=== PATIENT | male | born 1990 | race Caucasian/White ===

== ENCOUNTER 2018-10-29 14:36 | Emergency (ER) | payer MEDICAID ==
[2018-10-29] MEDS ORDERED: Ibuprofen 600 MG Tab PO ONE (16:12)
--- NOTE | 2018-10-29 16:17 | EDM.PDOC ---
ED HPI GENERAL MEDICAL PROBLEM - General Chief Complaint: ENT Problem Stated Complaint: THROWING UP/COUGH Time Seen by Provider: 10/29/18 16:05 Source of Information: Reports: Patient, Old Records, RN History Limitations: Reports: No Limitations - History of Present Illness INITIAL COMMENTS - FREE TEXT/NARRATIVE: 28 yo male here with cough, congestion, fever, and body aches for 2-3 days. Has not been to the clinic. Is not SOB. Is missing work. Did have an influenza vaccine. Onset: Gradual Onset Date: 10/26/18 Duration: Day(s): (3), Constant Location: Reports: Head, Face, Neck, Chest Quality: Reports: Other (mild sore throat) Severity: Moderate Improves with: Reports: Medication, Rest Worsens with: Reports: Other (exertion) Context: Reports: Sick Contact (?) Associated Symptoms: Reports: Cough, Fever/Chills Treatments CAR WHACKER: Reports: Other (see below) (none) Throat Pain Score (Numeric/FACES): 4 - Related Data Allergies Allergy/AdvReac Type Severity Reaction Status Date / Time No Known Allergies Allergy Verified 10/29/18 15:01 Home Meds: Home Meds NK [No Known Home Meds] 10/29/18 [History] Past Medical History Psychiatric History: Reports: Anxiety, Depression, Panic Attack, PTSD - Past Surgical History Head Surgeries/Procedures: Reports: None Dermatological Surgical History: Reports: None Social & Family History - Tobacco Use Smoking Status *Q: Current Every Day Smoker Years of Tobacco use: 20 Packs/Tins Daily: 5 Used Tobacco, but Quit: No Second Hand Smoke Exposure: No - Caffeine Use Caffeine Use: Reports: Coffee - Recreational Drug Use Recreational Drug Use: No ED ROS ENT - Review of Systems Review Of Systems: See Below Constitutional: Reports: Fever, Chills, Malaise HEENT: Reports: Throat Pain (mild). Denies: Rhinitis Respiratory: Reports: Cough. Denies: Shortness of Breath, Wheezing, Pleuritic Chest Pain, Sputum, Hemoptysis Cardiovascular: Reports: No Symptoms Endocrine: Reports: No Symptoms GI/Abdominal: Reports: No Symptoms : Reports: No Symptoms Musculoskeletal: Reports: No Symptoms Skin: Reports: No Symptoms Neurological: Reports: No Symptoms Psychiatric: Reports: No Symptoms ED EXAM, ENT - Physical Exam Exam: See Below Exam Limited By: No Limitations General Appearance: Alert, WD/WN, No Apparent Distress, Obese Eye Exam: Bilateral Eye: Normal Inspection Ears: Normal External Exam, Normal Canal, Hearing Grossly Normal, Normal TMs Nose: Normal Inspection, No Blood Mouth/Throat: Normal Inspection, Normal Lips, Normal Oropharynx Head: Atraumatic, Normocephalic Neck: Normal Inspection, Non-Tender Respiratory/Chest: No Respiratory Distress, Lungs Clear, Normal Breath Sounds, No Accessory Muscle Use Cardiovascular: Regular Rate, Rhythm, No Edema GI/Abdominal: Normal Bowel Sounds, Soft, Non-Tender, No Distention Back: Normal Inspection. No: CVA Tenderness (R), CVA Tenderness (L) Extremities: Normal Inspection, Normal Range of Motion, Non-Tender, No Pedal Edema Neurological: Alert, Oriented, CN II-XII Intact, Normal Cognition, No Motor/ Sensory Deficits Psychiatric: Normal Affect, Normal Mood Skin: Warm, Dry, Intact, Normal Color, No Rash Course - Vital Signs Last Recorded V/S: Last Vital Signs Temp 37.1 C 10/29/18 15:09 Pulse 96 10/29/18 15:09 Resp 15 10/29/18 15:09 BP 163/87 H 10/29/18 15:09 Pulse Ox 96 10/29/18 15:09 - Orders/Labs/Meds Labs: Laboratory Tests 10/29/18 Range/Units 16:43 WBC 6.4 (4.5-11.0) K/uL RBC 4.70 (4.30-5.90) M/uL Hgb 15.6 H (12.0-15.0) g/dL Hct 44.8 (40.0-54.0) % MCV 95 (80-98) fL MCH 33 H (27-31) pg MCHC 35 (32-36) % Plt Count 268 (150-400) K/uL Meds: Medications Discontinued Medications Generic Name Dose Route Start Last Admin Trade Name Freq PRN Reason Stop Dose Admin Ibuprofen 600 mg 10/29/18 16:12 10/29/18 16:16 Motrin PO 10/29/18 16:13 600 mg ONETIME ONE Administration Departure - Departure Time of Disposition: 16:51 Disposition: Home, Self-Care 01 Condition: Fair Clinical Impression: Influenza-like illness - Discharge Information *PRESCRIPTION DRUG MONITORING PROGRAM REVIEWED*: No *COPY OF PRESCRIPTION DRUG MONITORING REPORT IN PATIENT NATASHA: No Instructions: Influenza, Adult, [id number] Referrals: PCP,None [Primary Care Provider] - Forms: ED Department Discharge Additional Instructions: Take Robitussin AC as directed. Take acetaminophen and/or ibuprofen as needed for pain/fever control. Isolation and frequent hand washing to limit spread. Drink ample fluids and rest. Recheck if worse.
== END 2018-10-29 17:00 | disposition home or self-care (01) ==
LOC: JP.ED 14:36
DX: R09.89 Other specified symptoms and signs involving the circulatory and respiratory systems (principal); F17.210 Nicotine dependence, cigarettes, uncomplicated
CPT/HCPCS: 36415; 85027; 87804; 99284; A9270; 99282

== ENCOUNTER 2018-11-19 12:16 | Emergency (ER) | payer MEDICAID ==
--- NOTE | 2018-11-19 13:11 | EDM.PDOC ---
ED HPI GENERAL MEDICAL PROBLEM - General Chief Complaint: Lower Extremity Injury/Pain Stated Complaint: VEINS PAIN IN LEFT LEG Time Seen by Provider: 11/19/18 13:00 Source of Information: Reports: Patient, Old Records, RN History Limitations: Reports: No Limitations - History of Present Illness INITIAL COMMENTS - FREE TEXT/NARRATIVE: 28 yo male with chronic varicose veins comes to the ER today due to the veins hurting more than normal. Is taking ibuprofen for the pain. Onset: Gradual Duration: Chronic Location: Reports: Lower Extremity, Right Quality: Reports: Ache Severity: Mild Improves with: Reports: Medication Worsens with: Reports: None Context: Reports: Other (see HPI) Associated Symptoms: Reports: No Other Symptoms Treatments PEDIATRIC LPN: Reports: NSAIDS Left Leg Pain Score (Numeric/FACES): 7 - Related Data Allergies Allergy/AdvReac Type Severity Reaction Status Date / Time No Known Allergies Allergy Verified 11/19/18 13:04 Home Meds: Home Meds NK [No Known Home Meds] 10/29/18 [History] Past Medical History Psychiatric History: Reports: Anxiety, Depression, Panic Attack, PTSD - Past Surgical History Head Surgeries/Procedures: Reports: None Dermatological Surgical History: Reports: None Social & Family History - Tobacco Use Smoking Status *Q: Light Tobacco Smoker Years of Tobacco use: 20 Packs/Tins Daily: 0.5 - Caffeine Use Caffeine Use: Reports: Coffee - Recreational Drug Use Recreational Drug Use: No Review of Systems - Review of Systems Review Of Systems: See Below Constitutional: Reports: No Symptoms Eyes: Reports: No Symptoms Ears: Reports: No Symptoms Nose: Reports: No Symptoms Mouth/Throat: Reports: No Symptoms Respiratory: Reports: No Symptoms Cardiovascular: Reports: No Symptoms, Other (chronic leg varicose veins) GI/Abdominal: Reports: No Symptoms Genitourinary: Reports: No Symptoms Musculoskeletal: Reports: No Symptoms Skin: Reports: No Symptoms Neurological: Reports: No Symptoms ED EXAM, GENERAL - Physical Exam Exam: See Below Exam Limited By: No Limitations General Appearance: Alert, WD/WN, No Apparent Distress Eye Exam: Bilateral Eye: Normal Inspection Ears: Hearing Grossly Normal Ear Exam: Bilateral Ear: Auricle Normal, Canal Normal Nose: Normal Inspection, No Blood Throat/Mouth: Normal Voice, No Airway Compromise Head: Atraumatic, Normocephalic Neck: Normal Inspection Respiratory/Chest: No Respiratory Distress Extremities: Other (Large, unclotted varicosities of both legs, R >L) Neurological: Alert, Oriented, CN II-XII Intact, Normal Cognition Psychiatric: Normal Affect, Normal Mood Skin Exam: Warm, Dry, Intact, Normal Color, No Rash. No: Ecchymosis, Erythema Course - Vital Signs Last Recorded V/S: Last Vital Signs Temp 35.4 C 11/19/18 13:03 Pulse 72 11/19/18 13:03 Resp 16 11/19/18 13:03 BP 165/88 H 11/19/18 13:03 Pulse Ox 100 11/19/18 13:03 Departure - Departure Time of Disposition: 13:12 Disposition: Home, Self-Care 01 Condition: Good Clinical Impression: Varicose veins of both lower extremities Qualifiers: Varicose vein complication: pain Qualified Code(s): I83.813 - Varicose veins of bilateral lower extremities with pain - Discharge Information *PRESCRIPTION DRUG MONITORING PROGRAM REVIEWED*: No *COPY OF PRESCRIPTION DRUG MONITORING REPORT IN PATIENT NATASHA: No Instructions: Varicose Veins Referrals: Fred Willis MD [Primary Care Provider] - Additional Instructions: Add acetaminophen for pain relief as needed to your current ibuprofen. F/U with surgery for treatment, someone will contact you likely tomorrow to schedule.
== END 2018-11-19 13:21 | disposition home or self-care (01) ==
LOC: JP.ED 12:16
DX: I83.813 Varicose veins of bilateral lower extremities with pain (principal); F17.210 Nicotine dependence, cigarettes, uncomplicated
CPT/HCPCS: 99283

== ENCOUNTER 2018-12-03 14:48 | Emergency (ER) | payer MEDICAID ==
[2018-12-03] MEDS ORDERED: Ketorolac 30 MG/ML SDV IVPUSH ONE (15:34)
[2018-12-03] MEDS ORDERED: methylPREDNISolone Sodium Succinate 125 MG/2 ML SDV IVPUSH ONE (16:41)
--- NOTE | 2018-12-03 16:44 | EDM.PDOC ---
ED HPI GENERAL MEDICAL PROBLEM - General Chief Complaint: Skin Complaint Stated Complaint: INFECTION Time Seen by Provider: 12/03/18 15:25 Source of Information: Reports: Patient History Limitations: Reports: No Limitations - History of Present Illness INITIAL COMMENTS - FREE TEXT/NARRATIVE: 28-year-old male with known varicosities of the left leg has had red inflamed areas of the leg for the past 3 weeks. He was seen in the clinic 2 days ago and started on an antibiotic but it's worsening. An ultrasound done confirmed significant superficial varicosities. No DVT, he's had no fevers or chills. The pain is worsening, he's having difficulty standing and working. Onset: Gradual Duration: Week(s): (Started 3 weeks ago with a small red area and has worsened steadily) Location: Reports: Lower Extremity, Left Worsens with: Reports: Other (Standing), Movement Associated Symptoms: Reports: No Other Symptoms. Denies: Chest Pain, Cough, Fever/Chills, Shortness of Breath Treatments CASING IN LINE SETTER: Reports: Other (see below) (Has had antibiotics for the last 3 days, also taking ibuprofen) Left Leg Pain Score (Numeric/FACES): 10 - Related Data Allergies Allergy/AdvReac Type Severity Reaction Status Date / Time No Known Allergies Allergy Verified 12/03/18 15:09 Home Meds: Home Meds Diclofenac Sodium 1 dose TOP DAILY 12/03/18 [History] QUEtiapine Fumarate [Quetiapine Fumarate] 100 mg PO DAILY 12/03/18 [History] Sulfamethoxazole/Trimethoprim [Bactrim Ds Tablet] 1 each PO BID 12/03/18 [ History] busPIRone HCl [Buspirone HCl] 15 mg PO BID 12/03/18 [History] cloNIDine [Catapres] 0.1 mg PO DAILY 12/03/18 [History] lamoTRIgine [Lamotrigine] 25 mg PO DAILY 12/03/18 [History] Past Medical History Cardiovascular History: Reports: Other (See Below) Other Cardiovascular History: varicose veins. tachycardia Neurological History: Reports: Migraines Psychiatric History: Reports: Anxiety, Depression, Panic Attack, PTSD - Past Surgical History Head Surgeries/Procedures: Reports: None Dermatological Surgical History: Reports: None Social & Family History - Tobacco Use Smoking Status *Q: Current Every Day Smoker Years of Tobacco use: 20 Packs/Tins Daily: 0.5 - Caffeine Use Caffeine Use: Reports: Coffee, Soda - Recreational Drug Use Recreational Drug Type: Reports: Methamphetamine ED ROS GENERAL - Review of Systems Review Of Systems: See Below Constitutional: Denies: Fever, Chills HEENT: Reports: No Symptoms Respiratory: Denies: Shortness of Breath, Cough Cardiovascular: Denies: Chest Pain GI/Abdominal: Denies: Diarrhea, Nausea, Vomiting : Reports: No Symptoms Skin: Reports: Erythema Neurological: Denies: Headache ED EXAM, SKIN/RASH Exam: See Below Exam Limited By: No Limitations General Appearance: Alert, No Apparent Distress (Patient is very uncomfortable but not distressed) Respiratory/Chest: No Respiratory Distress, Lungs Clear Cardiovascular: Regular Rate, Rhythm Extremities: Other (Exam is otherwise limited to the lower extremities. Patient has extensive very painful and warm erythema on the medial aspect of the left thigh, also areas of erythema on the medial aspect of the lower leg. It is firm to palpation, very tender.) Course - Vital Signs Last Recorded V/S: Last Vital Signs Temp 97.3 F 12/03/18 15:07 Pulse 96 12/03/18 15:07 Resp 16 12/03/18 15:07 BP 145/85 H 12/03/18 15:07 Pulse Ox 97 12/03/18 15:07 - Orders/Labs/Meds Labs: Laboratory Tests 12/03/18 12/03/18 Range/Units 15:47 15:47 WBC 9.2 (4.5-11.0) K/uL RBC 4.78 (4.30-5.90) M/uL Hgb 16.1 H (12.0-15.0) g/dL Hct 46.2 (40.0-54.0) % MCV 97 (80-98) fL MCH 34 H (27-31) pg MCHC 35 (32-36) % Plt Count 305 (150-400) K/uL Neut % (Auto) 50 (36-66) % Lymph % (Auto) 31 (24-44) % [place] % (Auto) 12 H (2-6) % Eos % (Auto) 6 H (2-4) % Baso % (Auto) 1 (0-1) % Sodium 138 L (140-148) mmol/L Potassium 3.7 (3.6-5.2) mmol/L Chloride 104 (100-108) mmol/L Carbon Dioxide 23 (21-32) mmol/L Anion Gap 14.7 H (5.0-14.0) mmol/L BUN 16 (7-18) mg/dL Creatinine 1.2 (0.8-1.3) mg/dL Est Cr Clr Drug Dosing 108.56 mL/min Estimated GFR (MDRD) > 60 (>60) Glucose 103 (74-106) mg/dL Calcium 9.0 (8.5-10.1) mg/dL C-Reactive Protein 3.29 H (0.0-0.3) mg/dL Meds: Medications Discontinued Medications Generic Name Dose Route Start Last Admin Trade Name Freq PRN Reason Stop Dose Admin Ketorolac Tromethamine 30 mg 12/03/18 15:34 12/03/18 15:45 Toradol IVPUSH 12/03/18 15:35 30 mg ONETIME ONE Administration Methylprednisolone Sodium Succinate 125 mg 12/03/18 16:41 12/03/18 16:50 Solu-Medrol IVPUSH 12/03/18 16:42 125 mg ONETIME ONE Administration - Re-Assessments/Exams Free Text/Narrative Re-Assessment/Exam: 12/04/18 08:42 An IV was started and the patient was given 30 mg of IV Toradol. CBC BMP and CRP were obtained, CRP is elevated but white count is normal. Discussed his condition with surgery, this likely is extensive superficial thrombophlebitis, actual bacterial infection is unlikely. Patient was given 125 mg of IV Solu- Medrol, will continue on a Medrol Dosepak over the next several days and continue the antibiotic. Recheck with Dr. Hernandez on Tuesday. Departure - Departure Time of Disposition: 16:53 Disposition: Home, Self-Care 01 Condition: Fair Clinical Impression: Superficial thrombophlebitis of left leg - Discharge Information Instructions: Phlebitis, [id number] Referrals: Fred Willis MD [Primary Care Provider] - Forms: ED Department Discharge Care Plan Goals: Use ketorolac one pill every 6 hours until rechecked by Dr. Hernandez on Tuesday. Call the clinic tomorrow morning for an appointment time. Take Medrol Dosepak as prescribed, and continue the antibiotic.
== END 2018-12-03 16:53 | disposition home or self-care (01) ==
LOC: JP.ED 14:48
DX: I80.02 Phlebitis and thrombophlebitis of superficial vessels of left lower extremity (principal); F17.210 Nicotine dependence, cigarettes, uncomplicated; Z79.899 Other long term (current) drug therapy
CPT/HCPCS: 36415; 80048; 85025; 86140; 96374; 96375; 99283; J1885; J2930

== ENCOUNTER 2019-09-24 15:54 | Emergency (ER) | payer MEDICAID ==
[2019-09-24] MEDS ORDERED: Ketorolac 60 MG/2 ML SDV IM ONE (16:52)
--- NOTE | 2019-09-24 17:00 | EDM.PDOC ---
ED HPI GENERAL MEDICAL PROBLEM - General Chief Complaint: Upper Extremity Injury/Pain Stated Complaint: DISLOCATED LEFT SHOLDER Time Seen by Provider: 09/24/19 16:55 Source of Information: Reports: Patient, Family, RN Notes Reviewed History Limitations: Reports: No Limitations - History of Present Illness INITIAL COMMENTS - FREE TEXT/NARRATIVE: 29-year-old gentleman presents the emergency department with a complaint of left shoulder pain, he believes he may have dislocated it he slipped on the snow earlier today and felt a pop and now he has difficulty moving his left shoulder full range of motion of all digits cannot raise his arm past 10 degrees abduction left shoulder Pain Score (Numeric/FACES): 9 - Related Data Allergies Allergy/AdvReac Type Severity Reaction Status Date / Time No Known Allergies Allergy Verified 09/24/19 16:10 Home Meds: Home Meds lamoTRIgine [Lamotrigine] 100 mg PO DAILY 12/03/18 [History] Escitalopram [Lexapro] 20 mg PO DAILY 09/24/19 [History] Gabapentin [Neurontin] 100 mg PO TID 09/24/19 [History] OXcarbazepine [Trileptal] 300 mg PO DAILY 09/24/19 [History] Propranolol [Inderal] 40 mg PO BID 09/24/19 [History] Zolpidem Tartrate [Ambien] 5 mg PO BEDTIME 09/24/19 [History] Past Medical History Cardiovascular History: Reports: Other (See Below) Other Cardiovascular History: varicose veins. tachycardia Musculoskeletal History: Reports: Other (See Below) Other Musculoskeletal History: multiple dislocations of right shoulder Neurological History: Reports: Migraines Psychiatric History: Reports: Anxiety, Depression, Panic Attack, PTSD Endocrine/Metabolic History: Reports: Obesity/BMI 30+ - Past Surgical History Head Surgeries/Procedures: Reports: None Social & Family History - Tobacco Use Smoking Status *Q: Current Every Day Smoker Years of Tobacco use: 12 Packs/Tins Daily: 0.5 - Caffeine Use Caffeine Use: Reports: Coffee, Energy Drinks - Recreational Drug Use Recreational Drug Use: No Review of Systems - Review of Systems Review Of Systems: See Below Musculoskeletal: Reports: Shoulder Pain ED EXAM, GENERAL - Physical Exam Exam: See Below Free Text/Narrative:: Examination of the left shoulder I do not appreciate any obvious dislocation he is tender to any palpation over the AC joint he has problems raising his arm past 10 degrees abduction radial pulses +2 full range of motion of all digits no pain at the wrist or elbow Exam Limited By: No Limitations General Appearance: Alert, WD/WN, Mild Distress Respiratory/Chest: No Respiratory Distress ED TRAUMA EXTREMITY PROCEDURES - Joint Reduction Site: Shoulder (L) Sedation: Conscious Sedation Pre-Procedure NV Status: Normal Post-Procedure NV Status: Normal Technique: Traction/Counter Traction Number of Attempts: 1 Post-Reduction Imaging: Completely Reduced Joint Reduction Complications: No Joint Reduction Complication Description: Anesthesia down with [employer] [employer] please see his notes for details Course - Vital Signs Last Recorded V/S: Last Vital Signs Temp 97.3 F 09/24/19 16:17 Pulse 82 09/24/19 16:17 Resp 18 09/24/19 16:17 BP 152/98 H 09/24/19 16:17 Pulse Ox 97 09/24/19 16:17 - Orders/Labs/Meds Orders: Active Orders 24 hr Category Date Time Status Peripheral IV Care [RC] . DIRECTED Care 09/24/19 17:15 Active Sodium Chloride 0.9% [Normal Saline] 1,000 ml Med 09/24/19 17:15 Active IV ASDIRECTED Sodium Chloride 0.9% [Saline Flush] Med 09/24/19 17:15 Active 10 ml FLUSH ASDIRECTED PRN DME for Discharge [COMM] Urgent Oth 09/24/19 17:54 Ordered Peripheral IV Insertion Adult [OM.PC] Urgent Oth 09/24/19 17:15 Ordered Medication Orders Sodium Chloride (Normal Saline) 1,000 mls @ 125 mls/hr IV ASDIRECTED ARIA Last Admin: 09/24/19 17:27 Dose: 125 mls/hr Sodium Chloride (Saline Flush) 10 ml FLUSH ASDIRECTED PRN PRN Reason: Keep Vein Open Last Admin: 09/24/19 17:26 Dose: 10 ml Meds: Medications Generic Name Dose Route Start Last Admin Trade Name Freq PRN Reason Stop Dose Admin Sodium Chloride 1,000 mls @ 125 mls/hr 09/24/19 17:15 09/24/19 17:27 Normal Saline IV 125 mls/hr ASDIRECTED ARIA Administration Sodium Chloride 10 ml 09/24/19 17:15 09/24/19 17:26 Saline Flush FLUSH 10 ml ASDIRECTED PRN Administration Keep Vein Open Discontinued Medications Generic Name Dose Route Start Last Admin Trade Name James PRN Reason Stop Dose Admin Ketorolac Tromethamine 60 mg 09/24/19 16:52 09/24/19 16:58 Toradol IM 09/24/19 16:53 60 mg ONETIME ONE Administration Propofol Confirm 09/24/19 18:06 Diprivan 20 Ml Administered 09/24/19 18:07 Dose 200 mg .ROUTE .STK-MED ONE Departure - Departure Time of Disposition: 18:17 Disposition: Home, Self-Care 01 Condition: Fair Clinical Impression: Anterior dislocation of left shoulder Qualifiers: Encounter type: initial encounter Qualified Code(s): S43.015A - Anterior dislocation of left humerus, initial encounter - Discharge Information Instructions: Recurrent Shoulder Laxity and Instability Referrals: Fred Willis MD [Primary Care Provider] - Forms: ED Department Discharge Additional Instructions: Continue to remain in sling until reevaluated by orthopedics or primary care next 3 to 5 days, call or return to the emergency department worsening symptoms Sepsis Event Note - Evaluation Sepsis Screening Result: No Definite Risk - Focused Exam Vital Signs: Vital Signs Temp Pulse Resp BP Pulse Ox 09/24/19 16:17 97.3 F 82 18 152/98 H 97 09/24/19 16:07 97.3 F 82 18 152/98 H 97 Date Exam was Performed: 09/24/19 Time Exam was Performed: 18:16 - My Orders Last 24 Hours: My Active Orders 09/24/19 17:15 Peripheral IV Care [RC] . DIRECTED Sodium Chloride 0.9% [Normal Saline] 1,000 ml IV ASDIRECTED Sodium Chloride 0.9% [Saline Flush] 10 ml FLUSH ASDIRECTED PRN Peripheral IV Insertion Adult [OM.PC] Urgent 09/24/19 17:54 DME for Discharge [COMM] Urgent - Assessment/Plan Last 24 Hours: My Active Orders 09/24/19 17:15 Peripheral IV Care [RC] . DIRECTED Sodium Chloride 0.9% [Normal Saline] 1,000 ml IV ASDIRECTED Sodium Chloride 0.9% [Saline Flush] 10 ml FLUSH ASDIRECTED PRN Peripheral IV Insertion Adult [OM.PC] Urgent 09/24/19 17:54 DME for Discharge [COMM] Urgent Plan: Assessment Acuity = acute Site and laterality = left shoulder dislocation Etiology = secondary to fall Manifestations = none Location of injury = Home Lab values = x-rays show dislocation and post reduction Plan Placed in a sling prescription written for Percocet 5/325 1 tab p.o. 3 times daily PRN total #6 he has a follow-up appointment with his primary care tomorrow This note was dictated using [employer] voice recognition software please call with any questions on syntax or grammar.
[2019-09-24] MEDS ORDERED: Sodium Chloride 0.9% 10 ML Syringe FLUSH PRN (17:15)
[2019-09-24] MEDS ORDERED: Sodium Chloride 0.9% 1,000 ML IV SCH (17:15)
--- NOTE | 2019-09-24 17:33 | CRLCR ---
Indication: Pain Technique: AP view of the left shoulder Comparison: None Findings: The humeral head is displaced anterior and inferior to the level of the glenoid. No fracture is identified. Impression: Left should dislocation Dictated by Sylvia Espinosa MD @ Sep 24 2019 5:30PM Signed by Dr. Sylvia Espinosa @ Sep 24 2019 5:32PM
[2019-09-24] MEDS ORDERED: Propofol 200 MG/20 ML SDV ONE (18:06)
--- NOTE | 2019-09-24 18:08 | CRLCR ---
Indication: Postreduction. Technique: Three views of the left shoulder. Comparison: The current study is dated 175 is compared with a study from earlier today. Findings: The humeral head is now seated within the glenoid. No definite fracture or subluxation is identified. Impression: No acute fracture Dictated by Sylvia Espinosa MD @ Sep 24 2019 6:06PM Signed by Dr. Sylvia Espinosa @ Sep 24 2019 6:07PM
== END 2019-09-24 18:32 | disposition home or self-care (01) ==
LOC: JP.ED 15:54
DX: S43.015A Anterior dislocation of left humerus, initial encounter (principal); F17.210 Nicotine dependence, cigarettes, uncomplicated; Z79.899 Other long term (current) drug therapy; W01.0XXA Fall on same level from slipping, tripping and stumbling without subsequent striking against object, initial encounter
CPT/HCPCS: 23650; 73020; 96360; 96372; 99283; J1885; J2704; J7030

== ENCOUNTER 2021-12-19 18:33 | Emergency (ER) | payer MEDICAID | END 2021-12-19 19:55 | disposition left against medical advice (07) | LOC: JP.ED 18:33 | DX: M79.605 Pain in left leg (principal); E11.9 Type 2 diabetes mellitus without complications; E66.9 Obesity, unspecified; Z72.0 Tobacco use; Z79.899 Other long term (current) drug therapy; Z86.16 Personal history of COVID-19 | CPT/HCPCS: 99282; 99283 ==

== ENCOUNTER 2022-04-11 13:22 | Emergency (ER) | payer MEDICAID ==
[2022-04-11] MEDS ORDERED: Famotidine 20 MG/2 ML SDV IVPUSH ONE (13:41)
[2022-04-11] MEDS ORDERED: diphenhydrAMINE 50 MG/ML SDV IVPUSH ONE (13:41)
[2022-04-11] MEDS ORDERED: Sodium Chloride 0.9% 10 ML Syringe FLUSH PRN (13:41)
[2022-04-11] MEDS ORDERED: methylPREDNISolone Sodium Succinate 125 MG/2 ML SDV IVPUSH ONE (13:43)
[2022-04-11] MEDS ORDERED: Sodium Chloride 0.9% 1,000 ML IV SCH (13:45)
== END 2022-04-11 15:08 | disposition home or self-care (01) ==
LOC: JP.ED 13:22
DX: T78.40XA Allergy, unspecified, initial encounter (principal); E11.9 Type 2 diabetes mellitus without complications; E66.9 Obesity, unspecified; Z68.41 Body mass index [BMI] 40.0-44.9, adult
CPT/HCPCS: 96361; 96374; 96375; 99283; J1200; J2930; J3490; J7030; 99282

== ENCOUNTER 2022-07-30 14:25 | Emergency (ER) | payer MEDICAID ==
[2022-07-30 17:32] LABS: TROPONIN I HIGH SENSITIVITY 6.8 pg/mL (<=60.3)
== END 2022-07-30 18:14 ==
LOC: JP.ED 14:25
DX: R07.89 Other chest pain (principal); E11.9 Type 2 diabetes mellitus without complications; F17.210 Nicotine dependence, cigarettes, uncomplicated; E66.9 Obesity, unspecified; Z68.37 Body mass index [BMI] 37.0-37.9, adult
CPT/HCPCS: 36415; 71045; 80048; 84484; 85025; 99285

== ENCOUNTER 2022-11-13 03:34 | Emergency (ER) | payer MEDICAID, OTHER ==
[2022-11-13] MEDS ORDERED: Aspirin 325 MG Tab.EC PO ONE (03:40)
[2022-11-13 04:16] LABS: ESTIMATED GFR 91 mL/min (>60); TROPONIN I HIGH SENSITIVITY 5.4 pg/mL (<=60.3)
== END 2022-11-13 04:48 ==
LOC: JP.ED 03:34
DX: F45.8 Other somatoform disorders (principal); E11.9 Type 2 diabetes mellitus without complications; E66.9 Obesity, unspecified; Z68.38 Body mass index [BMI] 38.0-38.9, adult
CPT/HCPCS: 36415; 80053; 84484; 85025; 93005; 99285; A9270

== ENCOUNTER 2022-11-19 19:49 | Emergency (ER) | payer MEDICAID ==
[2022-11-19 20:53] LABS: ESTIMATED GFR 102 mL/min (>60)
[2022-11-19] MEDS: Azithromycin 250 MG Tab PO STA (21:50)
[2022-11-19] MEDS: amLODIPine 5 MG Tab PO ONE (21:50)
== END 2022-11-19 21:51 ==
LOC: JP.ED 19:49
DX: J20.9 Acute bronchitis, unspecified (principal); I10 Essential (primary) hypertension; E11.9 Type 2 diabetes mellitus without complications; E66.9 Obesity, unspecified; Z68.39 Body mass index [BMI] 39.0-39.9, adult; Z79.899 Other long term (current) drug therapy
CPT/HCPCS: 36415; 71046; 71046-26; 80053; 85025; 85379; 99283; A9270-GY

== ENCOUNTER 2023-01-05 19:55 | Emergency (ER) | payer MEDICAID | END 2023-01-05 21:42 | disposition home or self-care (01) | LOC: JP.ED 19:55 | DX: J02.9 Acute pharyngitis, unspecified (principal); F41.9 Anxiety disorder, unspecified; I10 Essential (primary) hypertension; E11.9 Type 2 diabetes mellitus without complications; E66.9 Obesity, unspecified; Z72.0 Tobacco use; Z20.822 Contact with and (suspected) exposure to COVID-19; Z68.38 Body mass index [BMI] 38.0-38.9, adult | CPT/HCPCS: 87081; 87880-QW; 99283; U0002 ==

== ENCOUNTER 2023-08-04 12:08 | Emergency (ER) | payer MEDICAID ==
[2023-08-04 13:25] LABS: BASOPHILS ABSOLUTE AUTO 0.05 K/uL (0.00-0.10); BASOPHILS PERCENT AUTO 0.6 % (0.1-1.3); EOSINOPHILS ABSOLUTE AUTO 0.11 K/uL (0.00-0.40); EOSINOPHILS PERCENT AUTO 1.2 % (0.0-5.4); HEMOGLOBIN 16.9 g/dL (12.9-16.9); IMMATURE GRAN ABSOLUTE AUTO 0.09 K/uL (0.00-0.23); LYMPHOCYTES ABSOLUTE AUTO 2.94 K/uL (0.8-3.3); LYMPHOCYTES PERCENT AUTO 32.5 % (11.4-47.7); MEAN CORPUSCULAR VOLUME 94.6 fL (81.4-99.0); MONOCYTES ABSOLUTE AUTO 0.67 K/uL (0.20-0.90); MONOCYTES PERCENT AUTO 7.4 % (3.3-12.6); NEUTROPHILS ABSOLUTE AUTO 5.18 K/uL (1.0-7.6); NEUTROPHILS PERCENT AUTO 57.3 % (40.0-78.1); PLATELET COUNT,PLT 313 K/uL (130-375); RED BLOOD CELL COUNT 4.97 M/uL (4.14-5.76)
[2023-08-04 13:51] LABS: A/G RATIO 0.8 (1.2-2.2); ALANINE AMINOTRANSFERASE,ALT 39 U/L (12-78); ALBUMIN 3.3 g/dL (3.4-5.0); ALKALINE PHOSPHATASE 86 U/L (46-116); BILIRUBIN TOTAL 0.4 mg/dL (0.2-1.0); BLOOD UREA NITROGEN,BUN 9 mg/dL (7-18); CALCIUM 8.3 mg/dL (8.5-10.1); CARBON DIOXIDE,CO2 28 mmol/L (21-32); CHLORIDE,CL 102 mmol/L (100-108); CREATININE 1.1 mg/dL (0.8-1.3); EST CRCL DRUG DOSING (CG) 114.16 mL/min; ESTIMATED GFR 91 mL/min (>60); GLUCOSE RANDOM 94 mg/dL (74-106); POTASSIUM,K 3.8 mmol/L (3.6-5.2); PROTEIN TOTAL,TP 7.6 g/dL (6.4-8.2); SODIUM,NA 138 mmol/L (140-148)
[2023-08-04 13:52] LABS: ANION GAP 11.8 mmol/L (5.0-14.0); ASPARTATE AMNIOTRANSFERASE,AST 38 U/L (15-37)
== END 2023-08-04 14:35 | disposition home or self-care (01) ==
LOC: JP.ED 12:08
DX: R19.7 Diarrhea, unspecified (principal); E11.9 Type 2 diabetes mellitus without complications; E66.9 Obesity, unspecified; F17.210 Nicotine dependence, cigarettes, uncomplicated; I10 Essential (primary) hypertension; Z68.31 Body mass index [BMI] 31.0-31.9, adult
CPT/HCPCS: 36415; 80053; 83605; 85025; 86140; 93005; 93010; 99283; 99284

== ENCOUNTER 2025-07-06 05:20 | Emergency (ER) | payer MEDICAID, OTHER ==
[2025-07-06 06:03] LABS: BASOPHILS ABSOLUTE AUTO 0.03 K/uL (0.00-0.10); BASOPHILS PERCENT AUTO 0.3 % (0.1-1.3); EOSINOPHILS ABSOLUTE AUTO 0.13 K/uL (0.00-0.40); EOSINOPHILS PERCENT AUTO 1.2 % (0.0-5.4); IMMATURE GRAN ABSOLUTE AUTO 0.04 K/uL (0.00-0.23); IMMATURE GRAN PERCENT AUTO 0.4 % (0.0-0.7); LYMPHOCYTES ABSOLUTE AUTO 2.76 K/uL (0.8-3.3); LYMPHOCYTES PERCENT AUTO 25.3 % (11.4-47.7); MONOCYTES ABSOLUTE AUTO 0.87 K/uL (0.20-0.90); MONOCYTES PERCENT AUTO 8.0 % (3.3-12.6); NEUTROPHILS ABSOLUTE AUTO 7.06 K/uL (1.0-7.6); NEUTROPHILS PERCENT AUTO 64.8 % (40.0-78.1); PLATELET COUNT,PLT 318 K/uL (130-375); RED BLOOD CELL COUNT 5.09 M/uL (4.14-5.76); WHITE BLOOD CELL COUNT,WBC 10.9 K/uL (3.2-11.0)
[2025-07-06 06:22] LABS: A/G RATIO 1.0 (1.2-2.2); ALANINE AMINOTRANSFERASE,ALT 53 U/L (12-78); ASPARTATE AMNIOTRANSFERASE,AST 24 U/L (15-37); BILIRUBIN TOTAL 0.6 mg/dL (0.2-1.0); BLOOD UREA NITROGEN,BUN 11 mg/dL (7-18); CARBON DIOXIDE,CO2 23 mmol/L (21-32); CHLORIDE,CL 102 mmol/L (100-108); CREATININE 1.2 mg/dL (0.8-1.3); EST CRCL DRUG DOSING (CG) 102.69 mL/min; ESTIMATED GFR 81 mL/min (>60); GLUCOSE RANDOM 138 mg/dL (74-106); POTASSIUM,K 3.9 mmol/L (3.6-5.2); PROTEIN TOTAL,TP 7.8 g/dL (6.4-8.2); SODIUM,NA 135 mmol/L (140-148)
[2025-07-06] MEDS: Aluminum Hydroxide/Magnesium Hydroxide/Simethicone Susp 30 ML Cup PO ONE (06:35)
== END 2025-07-06 06:36 | disposition home or self-care (01) ==
LOC: JP.ED 05:20
DX: K59.01 Slow transit constipation (principal); I10 Essential (primary) hypertension; E11.9 Type 2 diabetes mellitus without complications; E66.9 Obesity, unspecified; F17.200 Nicotine dependence, unspecified, uncomplicated; Z68.41 Body mass index [BMI] 40.0-44.9, adult
CPT/HCPCS: 36415; 80053; 85025; 99283; J3490; A9270-GY